=== PATIENT | female | born 1975 | race Caucasian/White ===

== ENCOUNTER 2018-07-06 03:57 | Day surgery (SDC) | payer OTHER ==
[~2018-07-06] VITALS: Ht 162.6 cm; Wt 90.9 kg
--- NOTE | 2018-07-06 04:31 | NUR ---
PT BIB [facility] FOR VAGINAL BLEEDING. PT PASSING LARGE CLOTS. PT SEEN AT [facility] TE[facility]. VSS. PT CHANGED INTO GOWN AND PLACED ON MONITOR. CALL LIGHT IN REACH.
[2018-07-06 04:48] LABS: BASOPHILS % (AUTO) 0 % (0-1); EOSINOPHILS # (AUTO) 0.01 x10^3/uL (0-0.4); EOSINOPHILS % (AUTO) 0 % (1-7); LYMPHOCYTES # (AUTO) 1.34 x10^3/uL (1-3.4); LYMPHOCYTES % (AUTO) 19 % (22-44); MD NO; MEAN CORPUSCULAR HEMOGLOBIN 27.9 pg (27.0-34.8); MEAN CORPUSCULAR HGB CONC 34.2 g/dL (32.4-35.8); MEAN CORPUSCULAR VOLUME 81.6 fL (80-100); MEAN PLATELET VOLUME 8.2 fL (7.4-10.4); MONOCYTES # (AUTO) 0.37 x10^3/uL (0.2-0.8); MONOCYTES % (AUTO) 5 % (2-9); NEUTROPHILS # (AUTO) 5.39 x10^3/uL (1.8-6.8); NEUTROPHILS % (AUTO) 76 % (42-75); PLATELET COUNT 179 x10^3/uL (130-400); RED BLOOD COUNT 4.05 x10^6/uL (3.82-5.3); RED CELL DISTRIBUTION WIDTH 13.6 % (9.6-15.2)
[2018-07-06 05:02] LABS: ALANINE AMINOTRANSFERASE 19 U/L (12-78); ALBUMIN 3.2 g/dL (3.4-5.0); ANION GAP 10 mmol/L (5-15); CALCIUM 8.1 mg/dL (8.5-10.1); CHLORIDE 107 mmol/L (98-107); CREATININE 0.63 mg/dL (0.55-1.02)
[2018-07-06 05:18] LABS: ALKALINE PHOSPHATASE 46 U/L (45-117); BILIRUBIN,TOTAL 0.4 mg/dL (0.2-1.0); TOTAL PROTEIN 6.7 g/dL (6.4-8.2)
--- NOTE | 2018-07-06 05:30 | NUR ---
PT HAS POSITIVE ORTHOSTATICS. MD AWARE. PT RESTING COMFORTABLY. VSS WHEN RESTING. CALL LIGHT IN REACH.
[2018-07-06] MEDS ORDERED: SODIUM CHLORIDE 0.9% 1,000 ML IV ONE (05:45)
[2018-07-06] MEDS ORDERED: SODIUM CHLORIDE 0.9% 1,000ML IVBOLUS ONE ×2 (06:00→07:00)
[2018-07-06] MEDS ORDERED: SODIUM CHLORIDE FLUSH 10ML SYR IVF ONE (06:00)
[2018-07-06] MEDS ORDERED: ONDANSETRON ODT 4 MG ONE (06:24)
[2018-07-06] MEDS ORDERED: MORPHINE SULFATE 4 MG/ML, 1ML ONE ×2 (06:24→08:35)
[2018-07-06] MEDS: MORPHINE SULFATE 4 MG/ML, 1ML IVPush PRN ×2 (06:26→08:38)
[2018-07-06] MEDS ORDERED: ONDANSETRON ODT 4 MG PO ONE (06:30)
--- NOTE | 2018-07-06 06:43 | NUR ---
FLUIDS RUNNING. PT MEDICATED FOR PAIN. PT TO BE ADMITTED. CALL LIGHT IN REACH.
--- NOTE | 2018-07-06 07:03 | NUR ---
REPORT TO RANDA KIMBALL.
--- NOTE | 2018-07-06 07:05 | NUR ---
REPORT RECEIVED, CARE ASSUMED, PT LAYING ON GURNEY, NO ACUTE DISTRESS AT THIS TIME. PT PAIN DECREASED TO 9/10 FROM 20/10. SR PER MONITOR. AUTO BP CUFF/PULSE OX IN PLACE. NO NEEDS EXPRESSED AT THIS TIME. AWAITING FURTHER DISPOSITION.
--- NOTE | 2018-07-06 07:59 | NUR ---
PT ASKING ABOUT FOOD, DISCUSSED WITH DR MONGE. BREAKFAST TRAY REQUESTED FROM DIETARY.
--- NOTE | 2018-07-06 08:15 | NUR ---
PT WITH ONGOING C/O "CRAMPING PAIN, GETS SHARP" 03/03. ASKING ABOUT ADDITIONAL PAIN MEDICATION. IV INFUSING WITHOUT REDNESS/SWELLING. WAITING FOR MEAL TRAY. FAMILY AT BEDSIDE.
--- NOTE | 2018-07-06 08:40 | NUR ---
SECOND DOSE OF 2 MG MORPHINE GIVEN.
--- NOTE | 2018-07-06 08:59 | NUR ---
PT SITTING UP ON GURNEY, EATING BREAKFAST. 3D ARTIST WAS IN TO DRAW BLOOD. DISCUSSED REPEAT ORTHOSTATIC V/S APPROX 0915. PAIN DECREASED TO 6-7/10. PT'S S/O AT BEDSIDE. NO OTHER NEEDS EXPRESSED AT THIS TIME.
[2018-07-06 09:01] LABS: BASOPHILS # (AUTO) 0.02 x10^3/uL (0-0.1); BASOPHILS % (AUTO) 0 % (0-1); EOSINOPHILS # (AUTO) 0.04 x10^3/uL (0-0.4); EOSINOPHILS % (AUTO) 1 % (1-7); LYMPHOCYTES # (AUTO) 1.82 x10^3/uL (1-3.4); LYMPHOCYTES % (AUTO) 29 % (22-44); MD NO; MEAN CORPUSCULAR HEMOGLOBIN 27.2 pg (27.0-34.8); MEAN CORPUSCULAR HGB CONC 33.6 g/dL (32.4-35.8); MEAN CORPUSCULAR VOLUME 81.1 fL (80-100); MEAN PLATELET VOLUME 8.1 fL (7.4-10.4); MONOCYTES # (AUTO) 0.36 x10^3/uL (0.2-0.8); MONOCYTES % (AUTO) 6 % (2-9); NEUTROPHILS # (AUTO) 4.15 x10^3/uL (1.8-6.8); NEUTROPHILS % (AUTO) 65 % (42-75); PLATELET COUNT 165 x10^3/uL (130-400); RED BLOOD COUNT 3.67 x10^6/uL (3.82-5.3); RED CELL DISTRIBUTION WIDTH 13.4 % (9.6-15.2)
--- NOTE | 2018-07-06 11:44 | NUR ---
PT RETURN TO ROOM FROM U/S. PT PROVIDED WITH NEW MATERNITY PANTIES. PT HAS GONE THROUGH 3 PADS SINCE START OF SHIFT. NAUSE "GOOD" PAIN INCREASED "AFTER U/S" -03/03. PT WITH BP DECREASED. DAVID GALO NOTIFIED.
--- NOTE | 2018-07-06 13:22 | NUR ---
REPORT TO RUSSELL Pride RN
--- NOTE | 2018-07-06 13:23 | NUR ---
received report from Emily. pt laying on gurney awake & comfortable, talking on cell phone, responds approp to staff, NAD, no needs at this time, SO at BS, call light within reach.
--- NOTE | 2018-07-06 14:14 | NUR ---
Pt to be admitted to OR. Report called to Fay.
--- NOTE | 2018-07-06 14:15 | NUR ---
Dr Yang at BS
--- NOTE | 2018-07-06 14:24 | NUR ---
Pt to be admitted to pre-op, room 12. Report called to Narda.
[2018-07-06 14:35] VITALS: BP 103/62
[2018-07-06] MEDS ORDERED: SILVER NITRATE STICK TP ONE (14:49)
[2018-07-06] MEDS ORDERED: OXYTOCIN 10 UNITS/ML, 1ML ONE ×2 (14:49→15:09)
[2018-07-06] MEDS ORDERED: METHYLERGONOVINE 0.2 MG/ML IM ONE (14:49)
[2018-07-06] MEDS ORDERED: MISOPROSTOL 200 MCG TABLET ONE (14:49)
[2018-07-06] MEDS ORDERED: MIDAZOLAM 1 MG/ML, 2ML ONE (14:58)
[2018-07-06] MEDS ORDERED: ROCURONIUM 10 MG/ML,10ML ONE (15:09)
[2018-07-06] MEDS ORDERED: DEXAMETHASONE 4 MG/ML, 1ML ONE (15:09)
[2018-07-06] MEDS ORDERED: SUCCINYLCHOLINE 20 MG/ML, 10ML ONE (15:09)
[2018-07-06] MEDS ORDERED: ONDANSETRON 2MG/ML, 2ML ONE (15:09)
[2018-07-06] MEDS ORDERED: PROPOFOL 10 MG/ML, 20ML ONE (15:09)
[2018-07-06] MEDS ORDERED: FENTANYL PF 250 MCG/5ML ONE (15:22)
[2018-07-06] MEDS ORDERED: CLINDAMYCIN 150 MG/ML, 6ML ONE (15:24)
[2018-07-06] MEDS ORDERED: OXYcodone 5 MG/5 ML ORAL.SOL UDC ONE (15:57)
[2018-07-06] MEDS ORDERED: FENTANYL PF 100 MCG/2ML ONE (15:59)
[2018-07-06] MEDS: FENTANYL PF 100 MCG/2ML IV PRN ×2 (16:00→16:05)
[2018-07-06] MEDS ORDERED: ONDANSETRON ODT 8 MG PO PRN (16:00)
[2018-07-06] MEDS ORDERED: hydrALAzine 20 MG/ML, 1ML IV PRN (16:00)
[2018-07-06] MEDS ORDERED: OXYcodone 5 MG/5 ML ORAL.SOL UDC PO PRN (16:00)
[2018-07-06] MEDS ORDERED: ONDANSETRON 2MG/ML, 2ML IV PRN (16:00)
[2018-07-06] MEDS ORDERED: PROMETHAZINE 12.5 MG SUPP PR PRN (16:00)
[2018-07-06] MEDS ORDERED: HYDROmorphone 1 MG/ML, 1ML IV PRN (16:00)
[2018-07-06] MEDS ORDERED: LABETALOL 5MG/ML, 20ML IV PRN (16:00)
[2018-07-06] MEDS ORDERED: PROMETHAZINE 25 MG/ML, 1ML ONE (16:09)
[2018-07-06] MEDS ORDERED: PROMETHAZINE 25 MG/ML, 1ML IV PRN (16:30)
== END 2018-07-06 14:13 | disposition home or self-care (01) ==
LOC: ED 04:18 → OR 14:12
PROVIDERS: ATTEND Emergency Medicine
DX: O02.1 Missed abortion (principal); D64.9 Anemia, unspecified; Z88.1 Allergy status to other antibiotic agents; Z88.0 Allergy status to penicillin
CPT/HCPCS: 36415; 59820; 76801; 80053; 84702; 85014; 85018; 85025; 86850; 86900; 88305; 93005; J0330; J1100; J2250; J2405; J2550; J2590; J2704; J3010; J7030; Q0162; 84703; J2210

== ENCOUNTER 2019-01-17 15:40 | Emergency (ER) | payer OTHER ==
[~2019-01-17] VITALS: Ht 162.6 cm; Wt 112.1 kg
[2019-01-17 16:30] LABS: MICROSCOPIC NOT IND
[2019-01-17] MEDS ORDERED: SODIUM CHLORIDE FLUSH 10ML SYR IVF ONE (16:30)
[2019-01-17] MEDS ORDERED: FAMOTIDINE 20 MG/2 ML IVP ONE (16:30)
[2019-01-17] MEDS ORDERED: ONDANSETRON 2MG/ML, 2ML IVPush ONE (16:30)
[2019-01-17] MEDS ORDERED: MAALOX/HYOSCYAMINE/LIDOCAINE 45 ML BTL PO ONE (16:30)
[2019-01-17 16:32] LABS: BASOPHILS # (AUTO) 0.02 x10^3/uL (0-0.1); BASOPHILS % (AUTO) 0 % (0-1); EOSINOPHILS # (AUTO) 0.07 x10^3/uL (0-0.4); EOSINOPHILS % (AUTO) 1 % (1-7); LYMPHOCYTES # (AUTO) 2.16 x10^3/uL (1-3.4); LYMPHOCYTES % (AUTO) 34 % (22-44); MD NO; MEAN CORPUSCULAR HEMOGLOBIN 26.1 pg (27.0-34.8); MEAN CORPUSCULAR HGB CONC 32.7 g/dL (32.4-35.8); MEAN CORPUSCULAR VOLUME 79.8 fL (80-100); MEAN PLATELET VOLUME 9.1 fL (7.4-10.4); MONOCYTES # (AUTO) 0.46 x10^3/uL (0.2-0.8); MONOCYTES % (AUTO) 7 % (2-9); NEUTROPHILS # (AUTO) 3.65 x10^3/uL (1.8-6.8); NEUTROPHILS % (AUTO) 57 % (42-75); PLATELET COUNT 198 x10^3/uL (130-400); RED BLOOD COUNT 4.75 x10^6/uL (3.82-5.3); RED CELL DISTRIBUTION WIDTH 15.3 % (9.6-15.2)
[2019-01-17] MEDS ORDERED: ONDANSETRON 2MG/ML, 2ML ONE (16:34)
[2019-01-17] MEDS ORDERED: MAALOX/HYOSCYAMINE/LIDOCAINE 45 ML BTL ONE (16:34)
[2019-01-17] MEDS ORDERED: FAMOTIDINE 20 MG/2 ML ONE (16:34)
[2019-01-17 16:37] LABS: CULTURE INDICATED? NO
--- NOTE | 2019-01-17 16:38 | NUR ---
SEE TRIAGE. PT C/O EPIGASTRIC AND LLQ ABD PAIN AND VOMITING TODAY. BLOOD IN STOOL WITH RECTAL PAIN FOR SEVERAL DAYS. URINE COLLECTED/SENT TO LAB. LABS DRAWN. PELVIC SET UP FOR PA. CALL LIGHT WITHIN REACH, WARM BLANKET PROVIDED.
[2019-01-17 16:42] LABS: ALANINE AMINOTRANSFERASE 25 U/L (12-78); ALBUMIN 3.3 g/dL (3.4-5.0); ANION GAP 8 mmol/L (5-15); CALCIUM 8.9 mg/dL (8.5-10.1); CHLORIDE 104 mmol/L (98-107)
[2019-01-17 16:46] LABS: ALKALINE PHOSPHATASE 70 U/L (45-117); BILIRUBIN,TOTAL 0.3 mg/dL (0.2-1.0); TOTAL PROTEIN 7.1 g/dL (6.4-8.2)
--- NOTE | 2019-01-17 17:20 | NUR ---
IV EJ TO R NECK PLACED BY DR GHOSH. PT MEDICATED PER ERP ORDER FOR 8/[address] NS BOLUS INFUSING.
[2019-01-17] MEDS ORDERED: SODIUM CHLORIDE 0.9% 1,000ML IVBOLUS ONE ×2 (17:30→18:00)
[2019-01-17 17:31] LABS: CLUE CELLS NONE SEEN (NONE SEEN)
[2019-01-17 17:32] LABS: WET PREP WBCS FEW (FEW)
[2019-01-17] MEDS ORDERED: OMNIPAQUE 350 MG/ML, 100ML BOTTLE ONE (17:34)
--- NOTE | 2019-01-17 18:00 | NUR ---
PT CONTINUES TO BE NAUSEATED, ABD PAIN IN DIFFERENT LOCATION AT THIS TIME-RUQ. GI COCKTAIL PROVIDED. 2ND NS LITER INFUSING. AWAITING RECHECK BY ERP.
[2019-01-17 18:40] VITALS: BP 121/62
== END 2019-01-17 18:44 | disposition home or self-care (01) ==
LOC: ED 17:40
DX: K92.0 Hematemesis (principal); K92.1 Melena; R10.13 Epigastric pain; R10.32 Left lower quadrant pain; R73.9 Hyperglycemia, unspecified
CPT/HCPCS: 36415; 36556; 74177; 80053; 81003; 83690; 84703; 85025; 87210; 87491; 87591; 87808; 96361; 96374; 96375; 99285; J2405; J3490; J7030; Q9967

== ENCOUNTER 2019-07-19 19:51 | Outpatient (CLI) | payer BC | END 2019-07-19 23:59 | disposition home or self-care (01) | LOC: RAD 19:51 | PROVIDERS: ATTEND Obstetrics & Gynecology Reproductive Endocrinology | DX: N83.202 Unspecified ovarian cyst, left side (principal); N83.201 Unspecified ovarian cyst, right side | CPT/HCPCS: 76830 ==

== ENCOUNTER → 2019-09-01 | Outpatient (CLI) | payer BC, OTHER | END | disposition home or self-care (01) | LOC: RAD 05:04 | PROVIDERS: ATTEND Obstetrics & Gynecology Reproductive Endocrinology | DX: N85.4 Malposition of uterus (principal); R93.89 Abnormal findings on diagnostic imaging of other specified body structures; E28.9 Ovarian dysfunction, unspecified | CPT/HCPCS: 76856 ==

== ENCOUNTER → 2019-09-07 | Outpatient (CLI) | payer BC | END | disposition home or self-care (01) | LOC: RAD 05:56 | PROVIDERS: ATTEND Obstetrics & Gynecology Reproductive Endocrinology | DX: N88.8 Other specified noninflammatory disorders of cervix uteri (principal); E28.9 Ovarian dysfunction, unspecified | CPT/HCPCS: 76856 ==

== ENCOUNTER 2019-09-12 06:42 | Outpatient (CLI) | payer BC | END 2019-09-12 23:59 | disposition home or self-care (01) | LOC: RAD 06:42 | PROVIDERS: ATTEND Obstetrics & Gynecology Reproductive Endocrinology | DX: R93.89 Abnormal findings on diagnostic imaging of other specified body structures (principal); Z90.721 Acquired absence of ovaries, unilateral | CPT/HCPCS: 76830 ==

== ENCOUNTER → 2019-09-20 | Outpatient (CLI) | payer BC, OTHER | END | disposition home or self-care (01) | LOC: RAD 05:44 | PROVIDERS: ATTEND Obstetrics & Gynecology Reproductive Endocrinology | DX: N88.8 Other specified noninflammatory disorders of cervix uteri (principal) | CPT/HCPCS: 76830 ==

== ENCOUNTER 2020-08-12 10:48 | Day surgery (SDC) | payer BC, OTHER ==
[~2020-08-12] VITALS: Ht 161.3 cm; Wt 103.8 kg
[~2020-08-12 10:48] MED LIST: EPINEPHRINE 1 MG/ML, 1ML ONE; LIDOCAINE/PF 1%, 30ML ONE
[2020-08-12] MEDS ORDERED: OXYcodone 5 MG/5 ML ORAL.SOL UDC PO PRN (11:30)
[2020-08-12] MEDS ORDERED: PLEASE ENTER HEIGHT AND WEIGHT MC SCH (11:30)
[2020-08-12] MEDS ORDERED: KETOROLAC 30 MG/1 ML IVPush PRN (11:30)
[2020-08-12] MEDS ORDERED: PROMETHAZINE 25 MG/ML, 1ML IVPush PRN (11:30)
[2020-08-12] MEDS ORDERED: FENTANYL PF 100 MCG/2ML ONE ×2 (11:32→13:46)
[2020-08-12] MEDS ORDERED: MIDAZOLAM 1 MG/ML, 2ML ONE (11:32)
[2020-08-12 11:39] VITALS: BP 137/89
[2020-08-12 11:43] LABS: HCG UR SG 1.044 (1.003-1.030)
[2020-08-12] MEDS ORDERED: ALBU18HF INH (11:47)
[2020-08-12] MEDS ORDERED: PREN1CAP34 PO/NG (11:47)
[2020-08-12] MEDS ORDERED: SCOPOLAMINE 1MG PATCH TD ONE ×2 (11:56→12:00)
[2020-08-12] MEDS ORDERED: CHLORHEXIDINE 15 ML UDC MM ONE (12:00)
[2020-08-12] MEDS ORDERED: LACTATED RINGERS 1,000 ML IV SCH (12:00)
[2020-08-12] MEDS ORDERED: ROPIvacaine/PF 0.5%, 30 ML ONE (12:03)
[2020-08-12] MEDS ORDERED: DEXAMETHASONE 4 MG/ML, 1ML ONE (12:19)
[2020-08-12] MEDS ORDERED: ONDANSETRON 2MG/ML, 2ML ONE ×3 (12:19→15:07)
[2020-08-12] MEDS ORDERED: PROPOFOL 10 MG/ML, 20ML ONE (12:19)
[2020-08-12] MEDS ORDERED: CLINDAMYCIN 150 MG/ML, 6ML ONE (12:26)
[2020-08-12] MEDS ORDERED: KETOROLAC 30 MG/1 ML ONE (12:54)
[2020-08-12] MEDS ORDERED: OXYcodone 5 MG/5 ML ORAL.SOL UDC ONE ×2 (13:46→14:53)
[2020-08-12] MEDS ORDERED: HYDROmorphone 1 MG/ML, 1ML INJ ONE (13:46)
[2020-08-12] MEDS: FENTANYL PF 100 MCG/2ML IV PRN ×2 (13:47→13:55)
[2020-08-12] MEDS ORDERED: PROMETHAZINE 25 MG/ML, 1ML ONE (13:50)
[2020-08-12] MEDS: HYDROmorphone 1 MG/ML, 1ML INJ IVPush PRN ×2 (13:58→16:06)
[2020-08-12] MEDS: ONDANSETRON 2MG/ML, 2ML IVPush PRN ×2 (14:37→15:15)
[2020-08-12] MEDS ORDERED: OXYcodone/APAP 5/325MG TABLET PO PRN (18:00)
== END 2020-08-12 18:20 | disposition home or self-care (01) ==
LOC: OUT 10:48
PROVIDERS: ATTEND Orthopaedic Surgery
DX: M67.51 Plica syndrome, right knee (principal); M94.261 Chondromalacia, right knee; M70.51 Other bursitis of knee, right knee; M23.41 Loose body in knee, right knee; J45.909 Unspecified asthma, uncomplicated; E11.9 Type 2 diabetes mellitus without complications; G40.909 Epilepsy, unspecified, not intractable, without status epilepticus; Z20.822 Contact with and (suspected) exposure to COVID-19; Z79.899 Other long term (current) drug therapy; Z88.0 Allergy status to penicillin; Z88.2 Allergy status to sulfonamides; Z88.5 Allergy status to narcotic agent; Z82.49 Family history of ischemic heart disease and other diseases of the circulatory system
CPT/HCPCS: 29876; 81025; 82962; 87635; J0171; J1100; J1170; J1885; J2250; J2405; J2550; J2704; J2795; J3010; J7120

== ENCOUNTER 2020-08-15 16:14 | Emergency (ER) | payer OTHER ==
[~2020-08-15] VITALS: Ht 160 cm; Wt 100.9 kg
[~2020-08-15 16:14] MED LIST changes: +ALBU18HF INH; -EPINEPHRINE 1 MG/ML, 1ML ONE; -LIDOCAINE/PF 1%, 30ML ONE; +PREN1CAP34 PO/NG
[2020-08-15 16:16] VITALS: BP 145/100
== END 2020-08-15 17:17 | disposition home or self-care (01) ==
LOC: ED 17:15
DX: L50.6 Contact urticaria (principal); E11.9 Type 2 diabetes mellitus without complications; Z79.4 Long term (current) use of insulin
CPT/HCPCS: 99283

== ENCOUNTER 2020-08-27 12:46 | Emergency (ER) | payer OTHER ==
[~2020-08-27] VITALS: Ht 167.6 cm; Wt 102.5 kg
[2020-08-27] MEDS ORDERED: KETOROLAC 30 MG/1 ML IVPush ONE (13:30)
[2020-08-27] MEDS ORDERED: SODIUM CHLORIDE 0.9% 1,000ML IVBOLUS ONE (13:30)
[2020-08-27] MEDS ORDERED: KETOROLAC 30 MG/1 ML ONE (13:48)
[2020-08-27 13:49] LABS: BASOPHILS % (AUTO) 1 % (0-1); EOSINOPHILS % (AUTO) 1 % (1-7); LYMPHOCYTES % (AUTO) 32 % (22-44); MEAN CORPUSCULAR HEMOGLOBIN 28.8 pg (27.0-34.8); MEAN CORPUSCULAR HGB CONC 34.2 g/dL (32.4-35.8); MEAN PLATELET VOLUME 8.4 fL (7.4-10.4); MONOCYTES % (AUTO) 6 % (2-9); NEUTROPHILS % (AUTO) 61 % (42-75); PLATELET COUNT 247 x10^3/uL (130-400); RED BLOOD COUNT 5.07 x10^6/uL (3.82-5.3); RED CELL DISTRIBUTION WIDTH 13.3 % (9.6-15.2)
[2020-08-27 13:51] LABS: MD NO
[2020-08-27 13:55] LABS: ALBUMIN 3.2 g/dL (3.4-5.0); ANION GAP 11 mmol/L (5-15); CALCIUM 8.4 mg/dL (8.5-10.1); CHLORIDE 104 mmol/L (98-107)
--- NOTE | 2020-08-27 13:55 | NUR ---
Report from REHANA Hamm. [facility].
--- NOTE | 2020-08-27 14:00 | NUR ---
US at bedside.
[2020-08-27 14:03] LABS: ACETONE, SERUM Negative (Negative)
--- NOTE | 2020-08-27 14:06 | NUR ---
Pt reports her knee surgery was done August 12- free floating cartilage was removed. They thought she had a torn meniscus but she did not. Pt reports she came into the ED today for pain behind her knee radiating down her calf.
[2020-08-27 14:08] LABS: ALANINE AMINOTRANSFERASE 35 U/L (12-78); ALKALINE PHOSPHATASE 87 U/L (45-117); BILIRUBIN,TOTAL 0.3 mg/dL (0.2-1.0); CREATININE 0.92 mg/dL (0.55-1.02); TOTAL PROTEIN 6.9 g/dL (6.4-8.2)
--- NOTE | 2020-08-27 14:13 | NUR ---
Pt reports "the toradol didn't touch the pain" This RN reports will wait 15 more minutes or so and if the pain is still high then can request additional pain meds from provider.
[2020-08-27] MEDS ORDERED: INSULIN SINGLE DOSE, ER ONE (14:35)
--- NOTE | 2020-08-27 14:50 | NUR ---
Pt using crutches to ambulate to bathroom, steady.
[2020-08-27 14:57] VITALS: BP 139/89
--- NOTE | 2020-08-27 15:45 | NUR ---
Dr. Davis aware of pt's blood sugar, aware that long acting insulin was given. Pt and provider comfortable with pt going home.
[2020-08-27] MEDS ORDERED: INSULIN REGULAR 100 UNITS/ML, 3ML VIAL SQ-INSULIN SCH (16:00)
== END 2020-08-27 15:56 | disposition home or self-care (01) ==
LOC: ED 14:24
DX: M25.561 Pain in right knee (principal); E11.65 Type 2 diabetes mellitus with hyperglycemia; Z96.651 Presence of right artificial knee joint
CPT/HCPCS: 80053; 82010; 82800; 82962; 85025; 93971; 96361; 96374; 99284; J1815; J1885; J7030